=== PATIENT | female | born 1935 | race Caucasian/White ===

== ENCOUNTER → 2017-05-20 10:00 | Outpatient (CLI) | payer OTHER | END | disposition home or self-care (01) | LOC: ADM 05-14 12:30 → CIR.AMB 07:00 → LAB 10:00 → CIR.AMB 12:30 → EDSTATUS 12:30 | DX: K40.20 Bilateral inguinal hernia, without obstruction or gangrene, not specified as recurrent (principal); Z01.812 Encounter for preprocedural laboratory examination ==